=== PATIENT | male | born 1965 | race Caucasian/White ===

== ENCOUNTER 2022-03-11 17:20 | Emergency (ER) | payer OTHER ==
[~2022-03-11] VITALS: Ht 177.8 cm; Wt 90.7 kg
[2022-03-11] MEDS ORDERED: SEPTDS PO (19:43)
== END 2022-03-11 20:00 | disposition home or self-care (01) ==
LOC: ED 17:20
DX: S61.315A Laceration without foreign body of left ring finger with damage to nail, initial encounter (principal); W22.8XXA Striking against or struck by other objects, initial encounter; Y93.89 Activity, other specified; Y92.89 Other specified places as the place of occurrence of the external cause; Y99.8 Other external cause status